=== PATIENT | female | born 1990 | race Caucasian/White ===

== ENCOUNTER 2024-09-04 16:44 | Inpatient (IN) | payer BC, SELFPAY ==
[2024-09-04 17:24] VITALS: BP 139/89; BMI 35.7
[2024-09-04 17:53] LABS: Hematocrit 35.4 % (37.0-47.0); Hemoglobin 11.7 g/dL (12.0-16.0); Mean Corp Hgb Conc. 33.1 g/dL (33.0-37.0); Mean Corpuscular Volume 81.0 fL (81.0-99.0); Nucleated Red Blood Cells % 0 %; Platelet Count 160 10^3/uL (130-400); Red Cell Dist. Width 13.2 % (11.5-14.5)
[2024-09-04 17:59] LABS: Urine Character Clear (Clear)
[2024-09-04 18:27] LABS: ALT (SGPT) 18 U/L (0-35); AST (SGOT) 26 U/L (14-36); Albumin 3.8 g/dl (3.5-5.0); Alkaline Phosphatase 146 U/L (38-126); Blood Urea Nitrogen 19 mg/dl (7-17); Calcium 9.4 mg/dl (8.4-10.2); Carbon Dioxide 21 mmol/L (22-30); Chloride 103 mmol/L (98-107); Estimated Creatinine Clearance > 125 ml/min; Glucose 91 mg/dl (70-99); Potassium 4.8 mmol/L (3.5-5.1); Sodium 130 mmol/L (135-145); Total Protein 6.4 g/dl (6.3-8.2); eGFR > 60.00
[2024-09-04] MEDS: CYTOTEC 25 MICROGRAM VAG (21:20)
[2024-09-05] MEDS: CYTOTEC 50 MICROGRAM PO ×2 (01:30→05:30)
[2024-09-05] MEDS: SYNTHROID 88 MCG PO (05:30)
[2024-09-05] MEDS: CYTOTEC PO ×4 (18:28→21:00)
[2024-09-05] MEDS: LR 1000 IV (19:57)
[2024-09-05] MEDS: PITOCIN 30 UNITS/NSS 500 ML IV (19:58)
[2024-09-06] MEDS: SYNTHROID 88 MCG PO (06:03)
[2024-09-06] MEDS: LR 1000 IV (06:38)
[2024-09-06] MEDS: TRANDATE 20 MG IV (12:11)
[2024-09-06] MEDS: MAGNESIUM SULFATE 100 IV (12:29)
[2024-09-06] MEDS: FENTANYL/BUPIVACAINE 100 EPIDURAL (12:55)
[2024-09-06] MEDS: SUBLIMAZE 100 MCG EPIDURAL (12:55)
[2024-09-06] MEDS: TRANEXAMIC ACID 100 IV (18:25)
[2024-09-06] MEDS: PITOCIN 30 UNITS/NSS 500 ML IV (18:28)
[2024-09-06] MEDS: CYTOTEC 800 MCG RECTAL (18:52)
[2024-09-06] MEDS: HEMABATE 250 MCG IM (18:53)
[2024-09-06 19:21] LABS: Hematocrit 37.3 % (37.0-47.0); Hemoglobin 12.4 g/dL (12.0-16.0); Mean Corp Hgb Conc. 33.2 g/dL (33.0-37.0); Mean Corpuscular Volume 80.7 fL (81.0-99.0); Nucleated Red Blood Cells % 0 %; Platelet Count 179 10^3/uL (130-400); Red Cell Dist. Width 13.3 % (11.5-14.5)
[2024-09-06 19:31] LABS: INR 1.04; PT 13.9 Sec (11.4-14.6)
[2024-09-06 19:32] LABS: APTT 26.6 Sec (23.4-35.0); Fibrinogen 570 MG/DL (199-459)
[2024-09-06] MEDS: PRENATAL PLUS PO (21:35)
[2024-09-07] MEDS: MOTRIN 600 MG PO ×2 (02:16→20:09)
[2024-09-07] MEDS: SYNTHROID 88 MCG PO (06:01)
[2024-09-07 06:02] LABS: Hematocrit 30.6 % (37.0-47.0); Hemoglobin 10.2 g/dL (12.0-16.0)
[2024-09-07] MEDS: PRENATAL PLUS 1 TABLET PO (10:17)
[2024-09-07] MEDS: LR 1000 IV (10:18)
[2024-09-07] MEDS: MAGNESIUM SULFATE 40 GRAM 1000 IV (12:48)
[2024-09-07 13:55] LABS: Syphilis/T. pallidum Ab Reflex Negative (Negative)
[2024-09-08] MEDS: SYNTHROID 88 MCG PO (05:48)
[2024-09-08] MEDS: PRENATAL PLUS 1 TABLET PO (07:55)
== END 2024-09-08 14:16 | disposition home or self-care (01) | DRG 768 ==
LOC: LDRP 16:44
PROVIDERS: Obstetrics & Gynecology; Student in an Organized Health Care Education/Training Program; ADMITTING PHYSICIAN Obstetrics & Gynecology; FAMILY PHYSICIAN Family Medicine
PROC: 3E0P7VZ Introduction of Hormone into Female Reproductive, Via Natural or Artificial Opening (ICD-10-PCS; 2024-09-04)
PROC: 0U7C7DJ Dilation of Cervix with Intraluminal Device, Temporary, Via Natural or Artificial Opening (ICD-10-PCS; 2024-09-05)
PROC: 10E0XZZ Delivery of Products of Conception, External Approach (ICD-10-PCS; 2024-09-06)
PROC: 3E033VJ Introduction of Other Hormone into Peripheral Vein, Percutaneous Approach (ICD-10-PCS; 2024-09-06)
PROC: 0W3R7ZZ Control Bleeding in Genitourinary Tract, Via Natural or Artificial Opening (ICD-10-PCS; 2024-09-06)
PROC: 0HQ9XZZ Repair Perineum Skin, External Approach (ICD-10-PCS; 2024-09-06)
PROC: 10907ZC Drainage of Amniotic Fluid, Therapeutic from Products of Conception, Via Natural or Artificial Opening (ICD-10-PCS; 2024-09-06)
DX: O14.14 Severe pre-eclampsia complicating childbirth (principal); Z37.0 Single live birth; O70.0 First degree perineal laceration during delivery; O72.1 Other immediate postpartum hemorrhage; O99.284 Endocrine, nutritional and metabolic diseases complicating childbirth; E03.9 Hypothyroidism, unspecified; Z3A.38 38 weeks gestation of pregnancy
CPT/HCPCS: 36415; 80053; 81003; 82570; 84156; 85014; 85018; 85025; 85384; 85610; 85730; 86780; 86850; 86900; 86901